=== PATIENT | female | born 1975 | race American Indian/Alaskan Native ===

== ENCOUNTER 2017-08-17 16:34 | Emergency (ER) | payer MEDICAID ==
[2017-08-17 17:26] VITALS: BP 124/64
--- NOTE | 2017-08-17 17:43 | EDM.PDOC ---
ED HPI GENERAL MEDICAL PROBLEM - General Source of Information: Reports: Patient History Limitations: Reports: No Limitations - History of Present Illness Onset: Other ( last 36 hours. ) Duration: Hour(s): Associated Symptoms: Reports: Nausea/Vomiting <Shilpi London - Last Filed: 08/17/17 17:59> <Timmy Page Veronica - Last Filed: 08/17/17 19:18> - General Stated Complaint: ABOUT 7 WEEKS WITH LOTS OF CRAMPING Time Seen by Provider: 08/17/17 17:25 - History of Present Illness INITIAL COMMENTS - FREE TEXT/NARRATIVE: Pt is a 42 year old 13 para 11. She thinks she may be about 7.5 weeks along but she is not sure. She belives she had her last period Jun 21. She has been doing some cramping in the last 36 hours. She has not had spotting at this point. She has had some subchorionic bleeds in the past. She has no symptoms of a UTI. She has been doing some vomiting. (Shilpi London) - Related Data Allergies Allergy/AdvReac Type Severity Reaction Status Date / Time bupropion HCl Allergy Hives Verified 08/17/17 17:14 [From Wellbutrin] Penicillins Allergy Cannot Verified 08/17/17 17:14 Remember Sulfa (Sulfonamide Allergy Hives Verified 08/17/17 17:14 Antibiotics) Home Meds: Home Meds Albuterol Sulfate [Albuterol Sulfate HFA] 8.5 gm IH Q4HR PRN 08/15/13 [History] Ibuprofen 400 mg PO ASDIRECTED 11/29/15 [History] Montelukast [Singulair] 10 mg PO BEDTIME 05/17/16 [History] Albuterol [Ventolin HFA] 1 dose INH Q4HR PRN 10/24/16 [History] Cetirizine HCl [Zyrtec] 10 mg PO DAILY 10/24/16 [History] Past Medical History HEENT History: Reports: Impaired Vision Respiratory History: Reports: Asthma 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: - Infectious Disease History Infectious Disease History: Reports: Chicken Pox - Past Surgical History HEENT Surgical History: Reports: Myringotomy w Tube(s) Female Surgical History: Reports: Section <Shilpi London - Last Filed: 08/17/17 17:59> Social & Family History - Tobacco Use Smoking Status *Q: Never Smoker Second Hand Smoke Exposure: No - Caffeine Use Caffeine Use: Reports: Coffee - Alcohol Use Days Per Week of Alcohol Use: 0 - Recreational Drug Use Recreational Drug Use: No - Living Situation & Occupation Living situation: Reports: <Shilpi London - Last Filed: 08/17/17 17:59> ED ROS GENERAL - Review of Systems Review Of Systems: See Below Constitutional: Reports: No Symptoms, Decreased Appetite HEENT: Reports: No Symptoms Respiratory: Reports: No Symptoms Cardiovascular: Reports: No Symptoms Endocrine: Reports: No Symptoms GI/Abdominal: Reports: Decreased Appetite, Nausea, Vomiting : Reports: No Symptoms Musculoskeletal: Reports: No Symptoms Skin: Reports: No Symptoms <SuryaShilpi - Last Filed: 08/17/17 17:59> ED EXAM - Physical Exam Exam: See Below Exam Limited By: No Limitations General Appearance: Alert, Anxious, Mild Distress Ears: Normal TMs Nose: Normal Inspection Throat/Mouth: Normal Inspection Head: Atraumatic Neck: Normal Inspection Respiratory/Chest: No Respiratory Distress Cardiovascular: Regular Rate, Rhythm GI/Abdominal Exam: Soft, Non-Tender Rectal Exam: Deferred Extremities: Normal Inspection Neurological: Alert, Oriented, Normal Cognition <SuryaShilpi - Last Filed: 08/17/17 17:59> <Timmy Page - Last Filed: 08/17/17 19:18> - Physical Exam Text/Narrative:: pt arrived having cramping in the lower abdoman. She has no spotting. She has no change in discharge. She had her last eriod the middle -Jun. This cramping started about 36 hours ago. She has been doing some vomiting. Her cramping has not been severe. (Shilpi London) Course <Shilpi London - Last Filed: 08/17/17 17:59> <Timmy Page - Last Filed: 08/17/17 19:18> - Vital Signs Last Recorded V/S: Last Vital Signs Temp 36.7 C 08/17/17 17:35 Pulse 62 08/17/17 17:35 Resp 16 08/17/17 17:35 BP 124/64 08/17/17 17:35 Pulse Ox 98 11/16/17 17:35 - Orders/Labs/Meds Orders: Active Orders 24 hr Category Date Time Status CULTURE URINE [RM] Stat Lab 08/17/17 18:08 Received Sodium Chloride 0.9% [Normal Saline] 1,000 ml Med 08/17/17 18:00 Active IV ASDIRECTED Medication Orders Sodium Chloride (Normal Saline) 1,000 mls @ 999 mls/hr IV ASDIRECTED JEFF Last Admin: 08/17/17 17:59 Dose: 999 mls/hr Labs: Laboratory Tests 08/17/17 08/17/17 08/17/17 Range/Units 17:31 17:34 17:35 WBC 7.9 (4.5-11.0) K/uL RBC 4.33 (3.30-5.50) M/uL Hgb 11.3 L D (12.0-15.0) g/dL Hct 36.5 (36.0-48.0) % MCV 84 (80-98) fL MCH 26 L (27-31) pg MCHC 31 L (32-36) % Plt Count 300 (150-400) K/uL Neut % (Auto) 62 (36-66) % Lymph % (Auto) 26 (24-44) % [place] % (Auto) 9 H (2-6) % Eos % (Auto) 3 (2-4) % Baso % (Auto) 0 (0-1) % Sodium (140-148) mmol/L Potassium (3.6-5.2) mmol/L Chloride (100-108) mmol/L Carbon Dioxide (21-32) mmol/L Anion Gap (5.0-14.0) mmol/L BUN (7-18) mg/dL Creatinine (0.6-1.0) mg/dL Est Cr Clr Drug Dosing mL/min Estimated GFR (MDRD) (>60) Glucose (74-106) mg/dL Calcium (8.5-10.1) mg/dL Total Bilirubin (0.2-1.0) mg/dL AST (15-37) U/L ALT (12-78) U/L Alkaline Phosphatase (46-116) U/L Total Protein (6.4-8.2) g/dL Albumin (3.4-5.0) g/dL Globulin (2.3-3.5) g/dL Albumin/Globulin Ratio (1.2-2.2) Urine Color Yellow Urine Appearance Slightly cloudy Urine pH 5.0 (4.5-8.0) Ur Specific [place] 1.020 (1.008-1.030) Urine Protein Negative (NEGATIVE) mg/dL Urine Glucose (UA) Normal (NEGATIVE) mg/dL Urine Ketones Negative (NEGATIVE) mg/dL Urine Occult Blood Negative (NEGATIVE) Urine Nitrite Negative (NEGATIVE) Urine Bilirubin Negative (NEGATIVE) Urine Urobilinogen Normal (NORMAL) mg/dL Ur Leukocyte Esterase Negative (NEGATIVE) Urine RBC 0-5 (0-5) Urine WBC 0-5 (0-5) Ur Epithelial Cells Few Amorphous Sediment Not seen Urine Bacteria Moderate Urine Mucus Few Urine HCG, Qual Positive H 08/17/17 Range/Units 17:35 WBC (4.5-11.0) K/uL RBC (3.30-5.50) M/uL Hgb (12.0-15.0) g/dL Hct (36.0-48.0) % MCV (80-98) fL MCH (27-31) pg MCHC (32-36) % Plt Count (150-400) K/uL Neut % (Auto) (36-66) % Lymph % (Auto) (24-44) % [place] % (Auto) (2-6) % Eos % (Auto) (2-4) % Baso % (Auto) (0-1) % Sodium 140 (140-148) mmol/L Potassium 3.4 L (3.6-5.2) mmol/L Chloride 105 (100-108) mmol/L Carbon Dioxide 26 (21-32) mmol/L Anion Gap 12.4 (5.0-14.0) mmol/L BUN 8 (7-18) mg/dL Creatinine 0.8 (0.6-1.0) mg/dL Est Cr Clr Drug Dosing 90.06 mL/min Estimated GFR (MDRD) > 60 (>60) Glucose 78 (74-106) mg/dL Calcium 8.7 (8.5-10.1) mg/dL Total Bilirubin 0.3 (0.2-1.0) mg/dL AST 17 (15-37) U/L ALT 23 (12-78) U/L Alkaline Phosphatase 92 (46-116) U/L Total Protein 7.4 (6.4-8.2) g/dL Albumin 3.6 (3.4-5.0) g/dL Globulin 3.8 H (2.3-3.5) g/dL Albumin/Globulin Ratio 1.0 L (1.2-2.2) Urine Color Urine Appearance Urine pH (4.5-8.0) Ur Specific [place] (1.008-1.030) Urine Protein (NEGATIVE) mg/dL Urine Glucose (UA) (NEGATIVE) mg/dL Urine Ketones (NEGATIVE) mg/dL Urine Occult Blood (NEGATIVE) Urine Nitrite (NEGATIVE) Urine Bilirubin (NEGATIVE) Urine Urobilinogen (NORMAL) mg/dL Ur Leukocyte Esterase (NEGATIVE) Urine RBC (0-5) Urine WBC (0-5) Ur Epithelial Cells Amorphous Sediment Urine Bacteria Urine Mucus Urine HCG, Qual Meds: Medications Generic Name Dose Route Start Last Admin Trade Name Freq PRN Reason Stop Dose Admin Sodium Chloride 1,000 mls @ 999 mls/hr 08/17/17 18:00 08/17/17 17:59 Normal Saline IV 999 mls/hr ASDIRECTED JEFF Administration - Re-Assessments/Exams Free Text/Narrative Re-Assessment/Exam: 08/17/17 18:02 urine had a specfic gravity is high. A liter of fluids will be given She has some bacteria in the urine but not alot of wbcs. A urine culture was set up. Her hg was 11. She has not been taking vits high in folic acid. ( Shilpi London) Free Text/Narrative Re-Assessment/Exam: 08/17/17 19:14 Assumed care at 1915. She is a grand multip at about 7.5 wk by dates with uterine cramping but no bleeding. Her lower abd and suprapubic area non- tender. Labs noted. No suspicion of ectopic. She received 1 liter iv ns. She feels well now and no more cramping (Timmy Page) Departure <Shilpi London - Last Filed: 08/17/17 17:59> - Departure Time of Disposition: 19:16 Condition: Fair <Timmy Page - Last Filed: 08/17/17 19:18> - Departure Disposition: Home, Self-Care 01 Clinical Impression: First trimester , Uterine cramping - Discharge Information Referrals: PCP,None [Primary Care Provider] - Additional Instructions: The cramping was probably due to some mild dehydration. If you feel you are getting worse then return to the ER right away of see your doctor. Be sure to drink plenty of liquids. Take vitamins.
[2017-08-17] MEDS ORDERED: Sodium Chloride 0.9% 1,000 ML IV SCH (18:00)
== END 2017-08-17 19:25 | disposition home or self-care (01) ==
LOC: JP.ED 16:34
DX: O99.89 Other specified diseases and conditions complicating pregnancy, childbirth and the puerperium (principal); N94.89 Other specified conditions associated with female genital organs and menstrual cycle; O99.52 Diseases of the respiratory system complicating childbirth; J45.909 Unspecified asthma, uncomplicated; Z3A.08 8 weeks gestation of pregnancy; Z88.0 Allergy status to penicillin; Z88.8 Allergy status to other drugs, medicaments and biological substances; Z88.2 Allergy status to sulfonamides; Z79.899 Other long term (current) drug therapy
CPT/HCPCS: 36415; 80053; 81001; 81025; 85025; 87086; 96360; 99284; J7040

== ENCOUNTER 2017-09-02 13:50 | Emergency (ER) | payer MEDICAID ==
[2017-09-02 14:03] VITALS: BP 116/73
--- NOTE | 2017-09-02 14:54 | EDM.PDOC ---
ED HPI GENERAL MEDICAL PROBLEM - General Chief Complaint: Respiratory Problem Stated Complaint: DIFFICULTY BREATHING Time Seen by Provider: 09/02/17 14:42 Source of Information: Reports: Patient, RN Notes Reviewed History Limitations: Reports: No Limitations - History of Present Illness INITIAL COMMENTS - FREE TEXT/NARRATIVE: 42-year-old female presents emergency department day complaint of feeling short of breath she was recently diagnosed with influenza A has started on Tamiflu has received 2 doses she states she gets so short of breath she cannot walk more than 10 feet without having to stop and rest Headache Pain Score (Numeric/FACES): 3 - Related Data Allergies Allergy/AdvReac Type Severity Reaction Status Date / Time bupropion HCl Allergy Hives Verified 09/02/17 14:24 [From Wellbutrin] Penicillins Allergy Cannot Verified 09/02/17 14:24 Remember Sulfa (Sulfonamide Allergy Hives Verified 09/02/17 14:24 Antibiotics) Home Meds: Home Meds Albuterol Sulfate [Albuterol Sulfate HFA] 8.5 gm IH Q4HR PRN 08/15/13 [History] Montelukast [Singulair] 10 mg PO BEDTIME 05/17/16 [History] Albuterol [Ventolin HFA] 1 dose INH Q4HR PRN 10/24/16 [History] Acetaminophen [Tylenol] 650 mg PO Q4H PRN 09/02/17 [History] Loratadine [Claritin] 10 mg PO BEDTIME 09/02/17 [History] Oseltamivir Phosphate 75 mg PO BID 09/02/17 [History] Past Medical History HEENT History: Reports: Impaired Vision Respiratory History: Reports: Asthma 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 for 1 month as a teenager for depression Endocrine/Metabolic History: Reports: Obesity/BMI 30+ - Infectious Disease History Infectious Disease History: Reports: Chicken Pox, Influenza - Past Surgical History Head Surgeries/Procedures: Reports: None HEENT Surgical History: Reports: Myringotomy w Tube(s) Respiratory Surgical History: Reports: None Female Surgical History: Reports: Section Endocrine Surgical History: Reports: None Dermatological Surgical History: Reports: None Social & Family History - Family History Family Medical History: Noncontributory - Tobacco Use Smoking Status *Q: Never Smoker Second Hand Smoke Exposure: No - Caffeine Use Caffeine Use: Reports: Coffee, Soda, Tea - Alcohol Use Days Per Week of Alcohol Use: 0 - Recreational Drug Use Recreational Drug Use: No - Living Situation & Occupation Living situation: Reports: ED ROS GENERAL - Review of Systems Review Of Systems: See Below Constitutional: Reports: Fever, Chills HEENT: Reports: Sinus Problem Respiratory: Reports: Shortness of Breath, Cough Cardiovascular: Reports: No Symptoms GI/Abdominal: Reports: No Symptoms : Reports: No Symptoms Musculoskeletal: Reports: Other (Body aches) Skin: Reports: No Symptoms ED EXAM, GENERAL - Physical Exam Exam: See Below Free Text/Narrative:: I did ambulate her around the emergency department she had no difficulty oxygen saturation started at 98% did dip to 96% however recovered to 99% upon rest Exam Limited By: No Limitations General Appearance: Alert, WD/WN, No Apparent Distress Ears: Normal External Exam, Normal Canal, Hearing Grossly Normal, Normal TMs Nose: Normal Inspection, Normal Mucosa, No Blood Throat/Mouth: Normal Inspection, Normal Lips, Normal Teeth, Normal Gums, Normal Oropharynx, Normal Voice, No Airway Compromise Head: Atraumatic, Normocephalic Neck: Normal Inspection, Supple, Non-Tender, Full Range of Motion Respiratory/Chest: No Respiratory Distress, Lungs Clear, Normal Breath Sounds, No Accessory Muscle Use, Chest Non-Tender Cardiovascular: Regular Rate, Rhythm, No Murmur Course - Vital Signs Last Recorded V/S: Last Vital Signs Temp 98.8 F 09/02/17 14:23 Pulse 93 09/02/17 14:23 Resp 11 L 09/02/17 14:23 BP 116/73 09/02/17 14:23 Pulse Ox 97 09/02/17 14:23 Departure - Departure Time of Disposition: 14:55 Disposition: Home, Self-Care 01 Condition: Good Clinical Impression: Influenza A - Discharge Information Referrals: PCP,None [Primary Care Provider] - Forms: ED Department Discharge Additional Instructions: continue to use Tylenol as needed for symptomatic care recommended over-the- counter treatments for sinus congestion, try the [place] for relief keep your follow-up appointment with obstetrics, call return to the emergency department worsening of symptoms - Assessment/Plan Plan: Assessment Acuity = acute Site and laterality = flu syndrome Etiology = influenza A Manifestations = dyspnea Location of injury = Home Lab values = none Plan Symptomatic care continued using Tylenol as needed, recommend [id number] antihistamines and that he pot for sinus congestion keep follow-up appointment with primary care Patient was in agreement with the plan all questions were answered, they were instructed to return to the emergency department or call for worsening symptoms. This note was dictated using [facility] voice recognition software please call with any questions.
== END 2017-09-02 15:04 | disposition home or self-care (01) ==
LOC: JP.ED 13:50
DX: J10.1 Influenza due to other identified influenza virus with other respiratory manifestations (principal); J45.909 Unspecified asthma, uncomplicated; Z88.2 Allergy status to sulfonamides; Z88.0 Allergy status to penicillin; Z88.8 Allergy status to other drugs, medicaments and biological substances
CPT/HCPCS: 99285

== ENCOUNTER 2018-10-06 13:12 | Emergency (ER) | payer MEDICAID ==
[2018-10-06 14:20] VITALS: BP 145/68
--- NOTE | 2018-10-06 16:33 | EDM.PDOC ---
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 She had a quant in the 5000 rage a week ago. She is about 7 weeks along. Onset: Gradual Duration: Day(s): Location: Reports: Other (pt is having dark spotting but no cramping. ) Associated Symptoms: Reports: No Other Symptoms - Related Data Allergies Allergy/AdvReac Type Severity Reaction Status Date / Time bupropion HCl Allergy Hives Verified 10/06/18 14:36 [From Wellbutrin] Penicillins Allergy Cannot Verified 10/06/18 14:36 Remember Sulfa (Sulfonamide Allergy Hives Verified 10/06/18 14:36 Antibiotics) Home Meds: Home Meds Albuterol Sulfate [Albuterol Sulfate HFA] 8.5 gm IH Q4HR PRN 08/15/13 [History] Montelukast [Singulair] 10 mg PO BEDTIME 05/17/16 [History] Albuterol [Ventolin HFA] 1 dose INH Q4HR PRN 10/24/16 [History] Acetaminophen [Tylenol] 650 mg PO Q4H PRN 09/02/17 [History] Pnv No.95/Ferrous Fum/Folic AC [ Caplet] 10/02/18 [History] Iron,Carbonyl/Vit C/Vit B12/Fa [Fe C Plus] 10/06/18 [History] Past Medical History HEENT History: Reports: Impaired Vision 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 History: Reports: Asthma 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: Psychiatric History: Reports: Other (See Below) Other Psychiatric History: [facility] 1 month as a teenager for depression Endocrine/Metabolic History: Reports: Obesity/BMI 30+ - Infectious Disease History Infectious Disease History: Reports: Chicken Pox, Influenza - Past Surgical History Head Surgeries/Procedures: Reports: None HEENT Surgical History: Reports: Myringotomy w Tube(s) Respiratory Surgical History: Reports: None Endocrine Surgical History: Reports: None Dermatological Surgical History: Reports: None Social & Family History - Family History Family Medical History: Noncontributory - Tobacco Use Smoking Status *Q: Never Smoker - Caffeine Use Caffeine Use: Reports: Coffee - Living Situation & Occupation Living situation: Reports: ED ROS GENERAL - Review of Systems Review Of Systems: See Below Constitutional: Reports: No Symptoms HEENT: Reports: No Symptoms Respiratory: Reports: No Symptoms Cardiovascular: Reports: No Symptoms Endocrine: Reports: No Symptoms GI/Abdominal: Reports: No Symptoms : Reports: No Symptoms, Other (pt is 7 weeks and is having some dark vag spotting. ) Musculoskeletal: Reports: No Symptoms Skin: Reports: No Symptoms Neurological: Reports: No Symptoms ED EXAM - Physical Exam Exam: See Below Text/Narrative:: pt arrived concerned about the dark vag spotting. She had brighter bleeding about 1 week ago. Exam Limited By: No Limitations General Appearance: Alert, No Apparent Distress Ears: Normal External Exam Nose: Normal Inspection Throat/Mouth: Normal Inspection Head: Atraumatic GI/Abdominal Exam: Other ( pt is not having cramping or any vag discomfort. ) Rectal Exam: Deferred Neurological: Alert, Oriented, Normal Cognition Course - Vital Signs Last Recorded V/S: Last Vital Signs Temp 35.9 C 10/06/18 14:42 Pulse 71 10/06/18 14:42 Resp 16 10/06/18 14:42 BP 145/68 H 10/06/18 14:42 Pulse Ox 97 10/06/18 14:42 - Orders/Labs/Meds Labs: Laboratory Tests 10/06/18 10/06/18 Range/Units 15:14 15:14 WBC 5.9 (4.5-11.0) K/uL RBC 4.49 (3.30-5.50) M/uL Hgb 12.9 (12.0-15.0) g/dL Hct 40.7 (36.0-48.0) % MCV 91 (80-98) fL MCH 29 (27-31) pg MCHC 32 (32-36) % Plt Count 251 (150-400) K/uL Neut % (Auto) 66 (36-66) % Lymph % (Auto) 25 (24-44) % [place] % (Auto) 6 (2-6) % Eos % (Auto) 3 (2-4) % Baso % (Auto) 0 (0-1) % HCG, Quant 7059 H (0-6) mIU/mL - Re-Assessments/Exams Free Text/Narrative Re-Assessment/Exam: 10/06/18 16:36 Pt has a quantative HCG which has risen to grweater then 7000. Her hg is good Departure - Departure Time of Disposition: 16:31 Disposition: Home, Self-Care 01 Condition: Fair Clinical Impression: 7 weeks gestation of , Vaginal spotting - Discharge Information Referrals: Emmanuelle Leong MD [Primary Care Provider] - Forms: ED Department Discharge Care Plan Goals: keep ob appt next week, make a copy of the labs from 1 week ago and today. and send with the pt for her appt, rtc if pt should have any heavy bleeding.
== END 2018-10-06 16:39 | disposition home or self-care (01) ==
LOC: JP.ED 13:12
DX: O26.851 Spotting complicating pregnancy, first trimester (principal); O99.511 Diseases of the respiratory system complicating pregnancy, first trimester; J45.909 Unspecified asthma, uncomplicated; Z88.0 Allergy status to penicillin; Z88.2 Allergy status to sulfonamides; Z79.899 Other long term (current) drug therapy; Z3A.01 Less than 8 weeks gestation of pregnancy
CPT/HCPCS: 36415; 84702; 85025; 99284

== ENCOUNTER 2019-03-16 02:14 | Emergency (ER) | payer MEDICAID ==
[2019-03-16 02:51] VITALS: BP 160/69
--- NOTE | 2019-03-16 03:33 | EDM.PDOC ---
ED HPI GENERAL MEDICAL PROBLEM - General Chief Complaint: General Stated Complaint: PALPITATIONS, SHORTNESS OF BREATH Time Seen by Provider: 03/16/19 03:23 Source of Information: Reports: Patient History Limitations: Reports: No Limitations - History of Present Illness INITIAL COMMENTS - FREE TEXT/NARRATIVE: This lady said she was at home and sitting on the couch watching TV and so forth when suddenly she felt anxious and took her pulse I believe it was with her blood pressure cuff and it was 107 and she got really upset by this because it was so high. Normally her heart rate runs in the 60s. She denied feeling short of breath however. She never had any chest pain. The only problem was her heart rate was elevated denies pain Pain Score (Numeric/FACES): 0 - Related Data Allergies Allergy/AdvReac Type Severity Reaction Status Date / Time bupropion HCl Allergy Hives Verified 03/16/19 03:13 [From Wellbutrin] Penicillins Allergy Cannot Verified 03/16/19 03:13 Remember Sulfa (Sulfonamide Allergy Hives Verified 03/16/19 03:13 Antibiotics) Home Meds: Home Meds Albuterol Sulfate [Albuterol Sulfate HFA] 8.5 gm IH Q4HR PRN 08/15/13 [History] Montelukast [Singulair] 10 mg PO BEDTIME 05/17/16 [History] Albuterol [Ventolin HFA] 1 dose INH Q4HR PRN 10/24/16 [History] Acetaminophen [Tylenol] 650 mg PO Q4H PRN 09/02/17 [History] Pnv No.95/Ferrous Fum/Folic AC [ Caplet] 10/02/18 [History] Iron,Carbonyl/Vit C/Vit B12/Fa [Fe C Plus] 10/06/18 [History] Past Medical History HEENT History: Reports: Impaired Vision 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 History: Reports: Asthma 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: Musculoskeletal History: Reports: Fracture Psychiatric History: Reports: Other (See Below) Other Psychiatric History: [facility] for 1 month as a teenager for depression Endocrine/Metabolic History: Reports: Obesity/BMI 30+ - Infectious Disease History Infectious Disease History: Reports: Chicken Pox, Influenza - Past Surgical History Head Surgeries/Procedures: Reports: None HEENT Surgical History: Reports: Myringotomy w Tube(s) Female Surgical History: Reports: Section Musculoskeletal Surgical History: Reports: Other (See Below) Other Musculoskeletal Surgeries/Procedures:: right radius and ulna surgical repair due to fracture Dermatological Surgical History: Reports: None Social & Family History - Family History Family Medical History: Noncontributory - Tobacco Use Smoking Status *Q: Never Smoker - Caffeine Use Caffeine Use: Reports: Coffee - Recreational Drug Use Recreational Drug Use: No - Living Situation & Occupation Living situation: Reports: ED ROS GENERAL - Review of Systems Review Of Systems: ROS reveals no pertinent complaints other than HPI. ED EXAM, GENERAL - Physical Exam Exam: See Below Exam Limited By: No Limitations General Appearance: Alert, WD/WN, Anxious Eye Exam: Bilateral Eye: Normal Inspection Throat/Mouth: Normal Oropharynx Neck: Normal Inspection Respiratory/Chest: Lungs Clear Cardiovascular: Regular Rate, Rhythm, No Murmur GI/Abdominal: Non-Tender Extremities: No Pedal Edema Course - Vital Signs Last Recorded V/S: Last Vital Signs Temp 36.2 C 03/16/19 03:15 Pulse 63 03/16/19 03:15 Resp 15 03/16/19 03:15 BP 160/69 H 03/16/19 03:15 Pulse Ox 100 03/16/19 03:15 Departure - Departure Time of Disposition: 03:30 Disposition: Home, Self-Care 01 Condition: Fair Clinical Impression: Palpitations - Discharge Information Instructions: Palpitations, [id number] Referrals: PCP,None [Primary Care Provider] - Forms: ED Department Discharge Additional Instructions: A heart rate of 107 is just barely above normal and is nothing for you to worry about. Even just very minor anxiety can cause that. This is nothing for you to worry about. You don't need to worry about electrolyte imbalances unless you've been having problems with vomiting and diarrhea and so forth. If you're having some leg cramps you could try taking about a half a teaspoon of salt in a glass of water and see if that helps or a lot of times taking about 3 or 4 Tums tablets will help. If you continue to have problems then follow-up with your early next week.
== END 2019-03-16 03:45 | disposition home or self-care (01) ==
LOC: JP.ED 02:14
DX: R00.2 Palpitations (principal); J45.909 Unspecified asthma, uncomplicated; E66.9 Obesity, unspecified; Z79.899 Other long term (current) drug therapy; Z88.8 Allergy status to other drugs, medicaments and biological substances; Z88.0 Allergy status to penicillin; Z88.2 Allergy status to sulfonamides; Z68.38 Body mass index [BMI] 38.0-38.9, adult
CPT/HCPCS: 99284

== ENCOUNTER 2019-07-29 15:57 | Emergency (ER) | payer MEDICAID ==
[2019-07-29 16:09] VITALS: BP 151/70; PULSE 71
--- NOTE | 2019-07-29 16:44 | EDM.PDOC ---
ED HPI GENERAL MEDICAL PROBLEM - General Chief Complaint: Back Pain or Injury Stated Complaint: 10 WKS PREG LOW BACK PAIN Time Seen by Provider: 07/29/19 16:10 Source of Information: Reports: Patient History Limitations: Reports: No Limitations - History of Present Illness INITIAL COMMENTS - FREE TEXT/NARRATIVE: 43-year-old female who is 10 weeks' gestation , confirmed with a 6 week ultrasound presents with low back discomfort for the past 6 hours. It hurts to bend forward, hurts to move her lean sideways. She is been chasing her son around and thinks she may have strained her back, she has no dysuria, urinary symptoms, fever or chills, vaginal spotting or cramping. No abdominal pain. Onset: Sudden (Started fairly suddenly at 10 AM, 6 hours ago) Associated Symptoms: Reports: No Other Symptoms Lower Back Pain Score (Numeric/FACES): 4 - Related Data Allergies Allergy/AdvReac Type Severity Reaction Status Date / Time bupropion HCl Allergy Hives Verified 07/29/19 16:08 [From Wellbutrin] Penicillins Allergy Cannot Verified 07/29/19 16:08 Remember Sulfa (Sulfonamide Allergy Hives Verified 07/29/19 16:08 Antibiotics) Home Meds: Home Meds Albuterol Sulfate [Albuterol Sulfate HFA] 8.5 gm IH Q4HR PRN 08/15/13 [History] Montelukast [Singulair] 10 mg PO BEDTIME 05/17/16 [History] Albuterol [Ventolin HFA] 1 dose INH Q4HR PRN 10/24/16 [History] Acetaminophen [Tylenol] 650 mg PO Q4H PRN 09/02/17 [History] Pnv No.95/Ferrous Fum/Folic AC [ Caplet] 1 tab PO DAILY 10/02/18 [ History] Past Medical History HEENT History: Reports: Impaired Vision Respiratory History: Reports: Asthma 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 SPECIALIST History: Reports: , 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 Musculoskeletal History: Reports: Fracture Psychiatric History: Reports: Other (See Below) Other Psychiatric History: [facility] for 1 month as a teenager for depression Endocrine/Metabolic History: Reports: Obesity/BMI 30+ - Infectious Disease History Infectious Disease History: Reports: Chicken Pox, Influenza - Past Surgical History Head Surgeries/Procedures: Reports: None HEENT Surgical History: Reports: Myringotomy w Tube(s) Respiratory Surgical History: Reports: None Female Surgical History: Reports: Section Endocrine Surgical History: Reports: None Musculoskeletal Surgical History: Reports: Other (See Below) Other Musculoskeletal Surgeries/Procedures:: right radius and ulna surgical repair due to fracture Dermatological Surgical History: Reports: None Social & Family History - Family History Family Medical History: Noncontributory - Tobacco Use Smoking Status *Q: Never Smoker Second Hand Smoke Exposure: No - Caffeine Use Caffeine Use: Reports: Coffee - Recreational Drug Use Recreational Drug Use: No - Living Situation & Occupation Living situation: Reports: ED ROS GENERAL - Review of Systems Review Of Systems: See Below Constitutional: Denies: Fever, Chills Respiratory: Denies: Shortness of Breath Cardiovascular: Denies: Chest Pain GI/Abdominal: Denies: Abdominal Pain Neurological: Reports: Paresthesia (Some slight numbness radiating to the anterior left thigh) ED EXAM,LOWER BACK PAIN/INJURY - Physical Exam Exam: See Below Exam Limited By: No Limitations General Appearance: Alert, No Apparent Distress Head: Atraumatic Respiratory/Chest: No Respiratory Distress GI/Abdominal: Normal Bowel Sounds, Soft, Other (Using a Doppler ultrasound heart tones are 168 were heard just above the suprapubic area) Back Exam: Other (Tender to palpation over the lower lumbar spine especially the left paralumbar muscles. Worse with rotating to the left against resistance and lifting the left leg. No true radiculopathy or extremity weakness.) Course - Vital Signs Last Recorded V/S: Last Vital Signs Temp 97.8 F 07/29/19 16:11 Pulse 71 07/29/19 16:11 Resp 18 07/29/19 16:11 BP 151/70 H 07/29/19 16:11 Pulse Ox 98 07/29/19 16:11 - Re-Assessments/Exams Free Text/Narrative Re-Assessment/Exam: 07/29/19 16:42 Patient was reassured that this does not appear to be related to her but is more musculoskeletal. Continue activity as tolerated, Tylenol or naproxen for pain if okay with her ORIGINATION SPECIALIST. Recheck later this week if not improving satisfactorily. Departure - Departure Time of Disposition: 16:49 Disposition: Home, Self-Care 01 Clinical Impression: 10 weeks gestation of Low back strain Qualifiers: Encounter type: initial encounter Qualified Code(s): S39.012A - Strain of muscle, fascia and tendon of lower back, initial encounter - Discharge Information Instructions: Low Back Sprain Referrals: Kayla Merino PA-C [Primary Care Provider] - Forms: ED Department Discharge Care Plan Goals: Tylenol and Aleve or ibuprofen is appropriate for the next several days. Heat or ice if it helps, and increase activity as tolerated. Consider rechecking in 3 -4 days if not improving satisfactorily.
== END 2019-07-29 16:49 | disposition home or self-care (01) ==
LOC: JP.ED 15:57
DX: O9A.211 Injury, poisoning and certain other consequences of external causes complicating pregnancy, first trimester (principal); S39.012A Strain of muscle, fascia and tendon of lower back, initial encounter; O99.211 Obesity complicating pregnancy, first trimester; E66.9 Obesity, unspecified; O99.511 Diseases of the respiratory system complicating pregnancy, first trimester; J45.909 Unspecified asthma, uncomplicated; Z3A.10 10 weeks gestation of pregnancy; Z88.2 Allergy status to sulfonamides; Z88.0 Allergy status to penicillin; Z88.8 Allergy status to other drugs, medicaments and biological substances; X58.XXXA Exposure to other specified factors, initial encounter; Y93.89 Activity, other specified
CPT/HCPCS: 99283-25

== ENCOUNTER 2020-01-04 18:29 | Emergency (ER) | payer MEDICAID ==
[2020-01-04 18:40] VITALS: BP 145/74; PULSE 104
--- NOTE | 2020-01-04 18:59 | EDM.PDOC ---
ED HPI GENERAL MEDICAL PROBLEM - General Chief Complaint: Upper Extremity Injury/Pain Stated Complaint: HURT LEFT WRIST Time Seen by Provider: 01/04/20 18:45 Source of Information: Reports: Patient History Limitations: Reports: No Limitations - History of Present Illness INITIAL COMMENTS - FREE TEXT/NARRATIVE: 44-year-old female with left wrist pain for the past week. She was getting up out of a chair when her wrist slipped off of the plastic cover of the arm of the chair and bent into a funny position causing pain. Since that time she has had some swelling and persistent discomfort over the radial aspect of the wrist , with pain especially with extension and ulnar deviation of the wrist. She is tried ice and wrapping but it is consistently bothering her so she wanted it checked. It is been 8 days. She did not actually strike it against anything. It never did bruise. Onset: Sudden Duration: Day(s): (8 days ago) Location: Reports: Upper Extremity, Left Associated Symptoms: Reports: No Other Symptoms (She is 33 weeks ) - Related Data Allergies Allergy/AdvReac Type Severity Reaction Status Date / Time bupropion HCl Allergy Hives Verified 01/04/20 18:41 [From Wellbutrin] Penicillins Allergy Cannot Verified 01/04/20 18:41 Remember Sulfa (Sulfonamide Allergy Hives Verified 01/04/20 18:41 Antibiotics) Home Meds: Home Meds Montelukast [Singulair] 10 mg PO BEDTIME 05/17/16 [History] Albuterol [Ventolin HFA] 1 dose INH Q4HR PRN 10/24/16 [History] Pnv No.95/Ferrous Fum/Folic AC [ Caplet] 1 tab PO DAILY 10/02/18 [ History] Beclomethasone Dipropionate [Qvar 80 Mcg] 1 puff INH DAILY 12/09/19 [History] Past Medical History HEENT History: Reports: Impaired Vision Respiratory History: Reports: Asthma 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: , 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 Musculoskeletal History: Reports: Fracture Psychiatric History: Reports: Other (See Below) Other Psychiatric History: [facility] for 1 month as a teenager for depression Endocrine/Metabolic History: Reports: Obesity/BMI 30+ - Infectious Disease History Infectious Disease History: Reports: Chicken Pox, Influenza - Past Surgical History Head Surgeries/Procedures: Reports: None HEENT Surgical History: Reports: Myringotomy w Tube(s) Respiratory Surgical History: Reports: None Female Surgical History: Reports: Section Endocrine Surgical History: Reports: None Musculoskeletal Surgical History: Reports: Other (See Below) Other Musculoskeletal Surgeries/Procedures:: right radius and ulna surgical repair due to fracture Dermatological Surgical History: Reports: None Social & Family History - Family History Family Medical History: Noncontributory - Tobacco Use Smoking Status *Q: Never Smoker - Caffeine Use Caffeine Use: Reports: Coffee - Living Situation & Occupation Living situation: Reports: Review of Systems - Review of Systems Review Of Systems: See Below Constitutional: Denies: Fever Respiratory: Reports: No Symptoms Cardiovascular: Reports: No Symptoms Skin: Reports: No Symptoms Neurological: Reports: No Symptoms ED EXAM, GENERAL - Physical Exam Exam: See Below Exam Limited By: No Limitations General Appearance: Alert, No Apparent Distress Respiratory/Chest: No Respiratory Distress Extremities: Other (Exam is otherwise limited to the upper extremities. She does have some slight swelling over the distal radius on the left wrist especially laterally compared to the right hand. It is also very tender to palpation but there is no significant deformity or crepitus or bruising. Snuffbox is nontender. She has increased pain with extension of the wrist or radial deviation) Course - Vital Signs Last Recorded V/S: Last Vital Signs Temp 96.0 F L 01/04/20 18:46 Pulse 104 H 01/04/20 18:46 Resp 16 01/04/20 18:46 BP 145/74 H 01/04/20 18:46 Pulse Ox 98 01/04/20 18:46 - Orders/Labs/Meds Orders: Active Orders 24 hr Category Date Time Status DME for Discharge [COMM] Stat Oth 01/04/20 18:59 Ordered - Re-Assessments/Exams Free Text/Narrative Re-Assessment/Exam: 01/04/20 18:57 She likely has a sprain of the metacarpal radial ligament, possibly the radial collateral ligament and I recommended rest with a wrist splint for 1 to 2 weeks. This was placed, she can recheck in 1 to 2 weeks if not improving satisfactorily. She can also Caleb wrap around the splint for extra support. Departure - Departure Time of Disposition: 19:05 Disposition: Home, Self-Care 01 Clinical Impression: Sprain of left wrist Qualifiers: Encounter type: initial encounter Qualified Code(s): S63.502A - Unspecified sprain of left wrist, initial encounter - Discharge Information Instructions: Wrist Sprain, Adult Referrals: PCP,None [Primary Care Provider] - Forms: ED Department Discharge Care Plan Goals: Immobilize your wrist with the splint for the next 7 to 14 days. Consider rechecking in 10 to 14 days if not improving satisfactorily, or return sooner if worsening despite splinting. Sepsis Event Note - Evaluation Sepsis Screening Result: No Definite Risk - Focused Exam Vital Signs: Vital Signs Temp Pulse Resp BP Pulse Ox 01/04/20 18:46 96.0 F L 104 H 16 145/74 H 98 01/04/20 18:39 96.0 F L 104 H 16 145/74 H 98 Date Exam was Performed: 01/04/20 Time Exam was Performed: 19:03 - My Orders Last 24 Hours: My Active Orders 01/04/20 18:59 DME for Discharge [COMM] Stat - Assessment/Plan Last 24 Hours: My Active Orders 01/04/20 18:59 DME for Discharge [COMM] Stat
== END 2020-01-04 19:06 | disposition home or self-care (01) ==
LOC: JP.ED 18:29
DX: S63.502A Unspecified sprain of left wrist, initial encounter (principal); O9A.213 Injury, poisoning and certain other consequences of external causes complicating pregnancy, third trimester; J45.909 Unspecified asthma, uncomplicated; E66.9 Obesity, unspecified; Z68.41 Body mass index [BMI] 40.0-44.9, adult; Z88.8 Allergy status to other drugs, medicaments and biological substances; Z88.0 Allergy status to penicillin; Z88.2 Allergy status to sulfonamides; Z3A.33 33 weeks gestation of pregnancy; W01.0XXA Fall on same level from slipping, tripping and stumbling without subsequent striking against object, initial encounter
CPT/HCPCS: 29125; 99283

== ENCOUNTER 2020-03-24 17:05 | Emergency (ER) | payer MEDICAID ==
[2020-03-24 17:52] VITALS: BP 148/66; PULSE 78
--- NOTE | 2020-03-24 18:24 | EDM.PDOC ---
ED HPI GENERAL MEDICAL PROBLEM - General Chief Complaint: Asthma Stated Complaint: SOB Time Seen by Provider: 03/24/20 18:10 Source of Information: Reports: Patient History Limitations: Reports: No Limitations - History of Present Illness Onset: Today Location: Reports: Chest Quality: Reports: Other (SOB from neighbor cutting grass) Improves with: Reports: None, Other (Has given self nebs x4 and used puffer through out day. Still ) Worsens with: Reports: Other (Allergies ) Associated Symptoms: Reports: Cough denies Pain Score (Numeric/FACES): 0 - Related Data Allergies Allergy/AdvReac Type Severity Reaction Status Date / Time bupropion HCl Allergy Hives Verified 03/24/20 17:53 [From Wellbutrin] Penicillins Allergy Cannot Verified 03/24/20 17:53 Remember Sulfa (Sulfonamide Allergy Hives Verified 03/24/20 17:53 Antibiotics) Home Meds: Home Meds Montelukast [Singulair] 10 mg PO BEDTIME 05/17/16 [History] Albuterol [Ventolin HFA] 1 dose INH Q4HR PRN 10/24/16 [History] Pnv No.95/Ferrous Fum/Folic AC [ Caplet] 1 tab PO DAILY 10/02/18 [History] Albuterol Sulfate 1 dose INH Q4H PRN 03/24/20 [History] Past Medical History HEENT History: Reports: Impaired Vision Respiratory History: Reports: Asthma 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: , 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 Musculoskeletal History: Reports: Fracture Psychiatric History: Reports: Other (See Below) Other Psychiatric History: [facility] for 1 month as a teenager for depression Endocrine/Metabolic History: Reports: Obesity/BMI 30+ - Infectious Disease History Infectious Disease History: Reports: Chicken Pox - Past Surgical History Head Surgeries/Procedures: Reports: None HEENT Surgical History: Reports: Myringotomy w Tube(s) Respiratory Surgical History: Reports: None Female Surgical History: Reports: Section Endocrine Surgical History: Reports: None Musculoskeletal Surgical History: Reports: Other (See Below) Other Musculoskeletal Surgeries/Procedures:: right radius and ulna surgical repair due to fracture Dermatological Surgical History: Reports: None Social & Family History - Family History Family Medical History: Noncontributory - Tobacco Use Smoking Status *Q: Never Smoker Second Hand Smoke Exposure: No - Caffeine Use Caffeine Use: Reports: Coffee, Soda - Recreational Drug Use Recreational Drug Use: No - Living Situation & Occupation Living situation: Reports: ED ROS GENERAL - Review of Systems Review Of Systems: See Below Constitutional: Reports: No Symptoms HEENT: Reports: No Symptoms Respiratory: Reports: Shortness of Breath Cardiovascular: Reports: No Symptoms Musculoskeletal: Reports: No Symptoms Skin: Reports: No Symptoms, Urticaria (From allergies ) Neurological: Reports: No Symptoms Psychiatric: Reports: No Symptoms Immunologic: Reports: Environmental Allergy, Seasonal Allergy, Grass Allergy, Pollen Allergy ED EXAM, GENERAL - Physical Exam Exam: See Below Exam Limited By: No Limitations General Appearance: Alert, WD/WN, No Apparent Distress Throat/Mouth: Normal Inspection, Normal Lips, Normal Teeth, Normal Gums, Normal Oropharynx, Normal Voice, No Airway Compromise Head: Normocephalic Neck: Normal Inspection Respiratory/Chest: Lungs Clear Cardiovascular: Regular Rate, Rhythm GI/Abdominal: Normal Bowel Sounds Extremities: Normal Inspection, Normal Range of Motion Neurological: Alert, Oriented, CN II-XII Intact, Normal Cognition, Normal Reflexes, No Motor/Sensory Deficits Psychiatric: Normal Affect Skin Exam: Warm, Dry, Intact, Normal Color, No Rash Course - Vital Signs Text/Narrative:: Pt here with asthma flkare form "neighbors cutting grass". LS clear BL. No wheezing. No SOB.Nursing baby. Will give 60 mg PO now and RX 20 mg PO BID x 4 more days. Pt will be released to home. Verbalized understanding of medication directions. Last Recorded V/S: Last Vital Signs Temp 36.2 C 03/24/20 17:51 Pulse 78 03/24/20 17:51 Resp 20 03/24/20 17:51 BP 148/66 H 03/24/20 17:51 Pulse Ox 94 L 03/24/20 17:51 - Orders/Labs/Meds Meds: Medications Discontinued Medications Generic Name Dose Route Start Last Admin Trade Name Freq PRN Reason Stop Dose Admin Prednisone 60 mg 03/24/20 18:26 03/24/20 18:37 Prednisone PO 03/24/20 18:27 60 mg ONETIME ONE Administration Departure - Departure Time of Disposition: 18:40 Disposition: Home, Self-Care 01 Condition: Good Clinical Impression: Asthma with status asthmaticus Qualifiers: Asthma severity: mild Asthma persistence: intermittent Qualified Code(s): J45.22 - Mild intermittent asthma with status asthmaticus - Discharge Information *PRESCRIPTION DRUG MONITORING PROGRAM REVIEWED*: Not Applicable *COPY OF PRESCRIPTION DRUG MONITORING REPORT IN PATIENT JAMISON: Not Applicable Instructions: Asthma, Adult, [id number] Referrals: PCP,None [Primary Care Provider] - Forms: ED Department Discharge Additional Instructions: Please take Prednisone as directed. Seek medical attention if your condition worsens or does not improve. Sepsis Event Note (ED) - Evaluation Sepsis Screening Result: No Definite Risk - Focused Exam Vital Signs: Vital Signs Temp Pulse Resp BP Pulse Ox 03/24/20 17:51 36.2 C 78 20 148/66 H 94 L
[2020-03-24] MEDS ORDERED: predniSONE 20 MG Tab PO ONE (18:26)
[2020-03-24] MEDS ORDERED: Albuterol/Ipratropium 3.0-0.5 MG/3 ML Neb Soln NEB ONE (18:45)
== END 2020-03-24 19:03 | disposition home or self-care (01) ==
LOC: JP.ED 17:05
DX: J45.22 Mild intermittent asthma with status asthmaticus (principal); J45.909 Unspecified asthma, uncomplicated; E66.9 Obesity, unspecified; Z88.8 Allergy status to other drugs, medicaments and biological substances; Z88.0 Allergy status to penicillin; Z88.2 Allergy status to sulfonamides; Z68.41 Body mass index [BMI] 40.0-44.9, adult
CPT/HCPCS: 94640; 99284; J7512; J7620-GY

== ENCOUNTER 2020-11-28 19:27 | Emergency (ER) | payer MEDICAID ==
[2020-11-28 19:47] VITALS: BP 129/50; PULSE 55
--- NOTE | 2020-11-28 19:59 | EDM.PDOC ---
ED HPI GENERAL MEDICAL PROBLEM - General Chief Complaint: Lower Extremity Injury/Pain Stated Complaint: INJURY RT FOOT Time Seen by Provider: 11/28/20 19:41 Source of Information: Reports: Patient History Limitations: Reports: No Limitations - History of Present Illness INITIAL COMMENTS - FREE TEXT/NARRATIVE: Brittany is a 47-year-old female presenting to the ED for evaluation of right midfoot pain after having a twisting injury today. Patient reports having issues with her left meniscus causing weakness in the left knee and as such has been putting more strain on the right lower extremity. The patient hyperflexed her foot and since then has been having pain whenever bearing weight on the entire foot. She is able to walk on the heel. She is somewhat flat-footed. 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 She denies any numbness or tingling in the foot. There is no significant swelling of the foot. The majority of the pain is on the plantar midfoot where the first and second tarsals. right midfoot Pain Score (Numeric/FACES): 5 - Related Data Allergies Allergy/AdvReac Type Severity Reaction Status Date / Time bupropion HCl Allergy Hives Verified 11/28/20 19:44 [From Wellbutrin] Penicillins Allergy Cannot Verified 11/28/20 19:44 Remember Sulfa (Sulfonamide Allergy Hives Verified 11/28/20 19:44 Antibiotics) Home Meds: Home Meds Montelukast [Singulair] 10 mg PO BEDTIME 05/17/16 [History] Albuterol [Ventolin HFA] 1 dose INH Q4HR PRN 10/24/16 [History] Pnv No.95/Ferrous Fum/Folic AC [ Caplet] 1 tab PO DAILY 10/02/18 [History] Albuterol Sulfate 1 dose INH Q4H PRN 03/24/20 [History] Cetirizine HCl [Allergy Relief] 1 tab PO DAILY 11/28/20 [History] Levothyroxine 25 mcg PO ACBREAKFAST 11/28/20 [History] Salmeterol Xinafoate [Serevent Diskus] 1 puff INH Q12H 11/28/20 [History] Past Medical History HEENT History: Reports: Impaired Vision Respiratory History: Reports: Asthma 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 for 1 month as a teenager for depression Endocrine/Metabolic History: Reports: Obesity/BMI 30+ - Infectious Disease History Infectious Disease History: Reports: Chicken Pox - Past Surgical History Head Surgeries/Procedures: Reports: None HEENT Surgical History: Reports: Myringotomy w Tube(s) Respiratory Surgical History: Reports: None Female Surgical History: Reports: Section Endocrine Surgical History: Reports: None Musculoskeletal Surgical History: Reports: Other (See Below) Other Musculoskeletal Surgeries/Procedures:: right radius and ulna surgical repair due to fracture Dermatological Surgical History: Reports: None Social & Family History - Family History Family Medical History: No Pertinent Family History - Caffeine Use Caffeine Use: Reports: Coffee, Soda - Living Situation & Occupation Living situation: Reports: Review of Systems - Review of Systems Review Of Systems: See Below Constitutional: Reports: No Symptoms Eyes: Reports: No Symptoms Ears: Reports: No Symptoms Nose: Reports: No Symptoms Mouth/Throat: Reports: No Symptoms Respiratory: Reports: No Symptoms Cardiovascular: Reports: No Symptoms GI/Abdominal: Reports: No Symptoms Genitourinary: Reports: No Symptoms Musculoskeletal: Reports: Back Pain (Chronic mild back pain.), Foot Pain (Right foot on the medial aspect over the first and second tarsals plantar greater than dorsal.), Joint Pain (Chronic left knee pain due to damage to the meniscus and medial collateral ligament.) Skin: Reports: No Symptoms Neurological: Reports: No Symptoms Psychiatric: Reports: No Symptoms ED EXAM, GENERAL - Physical Exam Exam: See Below Exam Limited By: No Limitations General Appearance: Alert, No Apparent Distress Extremities: Normal Range of Motion, No Pedal Edema, Normal Capillary Refill, Other (Tenderness with palpation over the medial plantar arch involving the first and second tarsal bones. There is no obvious deformity. There is normal range of motion of the toes. When applying pressure to the plantar fascia, pain radiates into the dorsal foot. This reproduces the symptoms.) Neurological: Alert, Oriented, Normal Cognition, No Motor/Sensory Deficits Psychiatric: Normal Affect, Normal Mood Skin Exam: Warm, Dry, Intact, Normal Color. No: Ecchymosis Course - Vital Signs Last Recorded V/S: Last Vital Signs Temp 36.3 C 11/28/20 19:46 Pulse 55 L 11/28/20 19:46 Resp 16 11/28/20 19:46 BP 129/50 L 11/28/20 19:46 Pulse Ox 98 11/28/20 19:46 - Orders/Labs/Meds Orders: Active Orders 24 hr Category Date Time Status Foot Comp Min 3V Rt [CR] Stat Exams 11/28/20 19:45 Taken - Re-Assessments/Exams Free Text/Narrative Re-Assessment/Exam: 11/28/20 20:39 reviewed the x-rays of the foot. There is no acute osseous abnormalities. Based on this and my exam, this is likely acute traumatic plantar fasciitis. We will put Brittany in a walking boot and I like her to follow-up in the [facility] clinic next week with podiatry for reevaluation. We will place a referral for her to see podiatry in the clinic next week. She may require physical therapy or orthotic to return to normal function. Take Tylenol or ibuprofen for pain control. Indications to return to the ED were discussed and she was discharged in satisfactory condition. Departure - Departure Time of Disposition: 20:41 Disposition: Home, Self-Care 01 Clinical Impression: Traumatic plantar fasciitis - Discharge Information *PRESCRIPTION DRUG MONITORING PROGRAM REVIEWED*: Not Applicable *COPY OF PRESCRIPTION DRUG MONITORING REPORT IN PATIENT JAMISON: Not Applicable Instructions: Foot Sprain Referrals: Kayla Merino PA-C [Primary Care Provider] - Forms: ED Department Discharge Care Plan Goals: We are putting you in a walking boot to help support the foot. There is significant inflammation in the plantar fascia causing increasing pain when the foot is spread out. Hopefully the boot will eliminate the need to bear weight on the entire foot. I have placed a consult for you to be seen in podiatry in the [facility] clinic next week. They will contact you to arrange this appointment. Sepsis Event Note (ED) - Focused Exam Vital Signs: Vital Signs Temp Pulse Resp BP Pulse Ox 11/28/20 19:46 36.3 C 55 L 16 129/50 L 98 - Problem List & Annotations (1) Traumatic plantar fasciitis SNOMED Code(s): 681554795 Code(s): S93.699A - OTHER SPRAIN OF UNSPECIFIED FOOT, INITIAL ENCOUNTER Status: Acute Priority: Medium Current Visit: Yes - Problem List Review Problem List Initiated/Reviewed/Updated: Yes - My Orders Last 24 Hours: My Active Orders 11/28/20 19:45 Foot Comp Min 3V Rt [CR] Stat - Assessment/Plan Last 24 Hours: My Active Orders 11/28/20 19:45 Foot Comp Min 3V Rt [CR] Stat
--- NOTE | 2020-11-30 09:27 | CR ---
FOOT RIGHT 3 views CLINICAL HISTORY:Injury FINDINGS:No fracture or osseous lesion is identified. No foreign body is seen. This a small calcaneal spur. Impression: Small calcaneal spur. No fracture
== END 2020-11-28 20:48 | disposition home or self-care (01) ==
LOC: JP.ED 19:27
DX: M72.2 Plantar fascial fibromatosis (principal); J45.909 Unspecified asthma, uncomplicated; E66.9 Obesity, unspecified; Z68.39 Body mass index [BMI] 39.0-39.9, adult; Z88.8 Allergy status to other drugs, medicaments and biological substances; Z88.0 Allergy status to penicillin; Z88.2 Allergy status to sulfonamides
CPT/HCPCS: 73630-26-RT; 73630-RT; 99283

== ENCOUNTER 2021-01-26 19:25 | Emergency (ER) | payer MEDICAID ==
[2021-01-26 20:51] VITALS: BP 108/61; PULSE 75
[2021-01-26] MEDS ORDERED: cefTRIAXone 1 GM, Lidocaine 1% 2.1 ML IM ONE ×2 (21:09)
--- NOTE | 2021-01-26 21:25 | EDM.PDOC ---
ED HPI GENERAL MEDICAL PROBLEM - General Chief Complaint: Skin Complaint Stated Complaint: FEVER ,PAIN CHILLS, BREAST PAIN Time Seen by Provider: 01/26/21 21:00 Source of Information: Reports: Patient History Limitations: Reports: No Limitations - History of Present Illness INITIAL COMMENTS - FREE TEXT/NARRATIVE: 45-year-old female who is breast-feeding, has developed some redness and soreness on the lips for the last 12 hours, low-grade fevers or chills. No other symptoms. Onset: Gradual Duration: Hour(s): Location: Reports: Other (12 hours left breast) Quality: Reports: Burning, Dull, Pressure Improves with: Reports: None Worsens with: Reports: None Associated Symptoms: Reports: Fever/Chills Left Breast Pain Score (Numeric/FACES): 5 - Related Data Allergies Allergy/AdvReac Type Severity Reaction Status Date / Time bupropion HCl Allergy Hives Verified 01/26/21 20:53 [From Wellbutrin] Penicillins Allergy Cannot Verified 01/26/21 20:53 Remember Sulfa (Sulfonamide Allergy Hives Verified 01/26/21 20:53 Antibiotics) Home Meds: Home Meds Montelukast [Singulair] 10 mg PO BEDTIME 05/17/16 [History] Albuterol [Ventolin HFA] 1 dose INH Q4HR PRN 10/24/16 [History] Pnv No.95/Ferrous Fum/Folic AC [ Caplet] 1 tab PO DAILY 10/02/18 [History] Albuterol Sulfate 1 dose INH Q4H PRN 03/24/20 [History] Cetirizine HCl [Allergy Relief] 1 tab PO DAILY 11/28/20 [History] Levothyroxine 25 mcg PO ACBREAKFAST 11/28/20 [History] Salmeterol Xinafoate [Serevent Diskus] 1 puff INH Q12H 11/28/20 [History] Mometasone Furoate [Asmanex] 2 puff INH DAILY 01/26/21 [History] Past Medical History HEENT History: Reports: Impaired Vision Respiratory History: Reports: Asthma Genitourinary History: Reports: None [employer]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 for 1 month as a teenager for depression Endocrine/Metabolic History: Reports: Obesity/BMI 30+ - Infectious Disease History Infectious Disease History: Reports: Chicken Pox - Past Surgical History Head Surgeries/Procedures: Reports: None HEENT Surgical History: Reports: Myringotomy w Tube(s) Respiratory Surgical History: Reports: None Female Surgical History: Reports: Section Endocrine Surgical History: Reports: None Musculoskeletal Surgical History: Reports: Other (See Below) Other Musculoskeletal Surgeries/Procedures:: right radius and ulna surgical repair due to fracture Dermatological Surgical History: Reports: None Social & Family History - Family History Family Medical History: No Pertinent Family History - Tobacco Use Tobacco Use Status *Q: Never Tobacco User - Caffeine Use Caffeine Use: Reports: Coffee, Soda, Tea - Recreational Drug Use Recreational Drug Use: No - Living Situation & Occupation Living situation: Reports: ED ROS GENERAL - Review of Systems Review Of Systems: See Below Constitutional: Reports: Fever, Chills, Malaise HEENT: Reports: No Symptoms Respiratory: Denies: Shortness of Breath Cardiovascular: Denies: Chest Pain GI/Abdominal: Denies: Nausea, Vomiting Skin: Reports: Other (Erythema and tenderness above and laterally to the left areolar area of the left breast) Neurological: Reports: No Symptoms. Denies: Headache Psychiatric: Reports: No Symptoms ED EXAM, SKIN/RASH Exam: See Below Exam Limited By: No Limitations General Appearance: Alert, No Apparent Distress, Other (Patient is stable, currently afebrile) Head: Atraumatic Respiratory/Chest: No Respiratory Distress Cardiovascular: Regular Rate, Rhythm. No: Tachycardia Neurological: Alert, Oriented Skin: Other (Patient does have a fairly large area of erythema above and laterally to the left areolar area of the breast with tenderness to palpation and slight warmth) Course - Vital Signs Last Recorded V/S: Last Vital Signs Temp 97.6 F 01/26/21 20:53 Pulse 75 01/26/21 20:53 Resp 16 01/26/21 20:53 BP 108/61 01/26/21 20:53 Pulse Ox 97 01/26/21 20:53 - Orders/Labs/Meds Meds: Medications Discontinued Medications Generic Name Dose Route Start Last Admin Trade Name Freq PRN Reason Stop Dose Admin Ceftriaxone Sodium 1 gm/ 0 gm 01/26/21 21:09 01/26/21 21:23 Lidocaine HCl 2.1 ml IM 04/27/21 21:10 1 inj ONETIME ONE Administration - Re-Assessments/Exams Free Text/Narrative Re-Assessment/Exam: 01/26/21 21:23 It appears this patient is developing some mastitis of the left breast. She was given 1 g of Rocephin IM and will be placed on cephalexin 500 mg 3 times a day for the next 7 days. Continue breast-feeding, warm compresses may be helpful, and recheck in 2 to 3 days if not improving satisfactorily. Departure - Departure Time of Disposition: 21:33 Disposition: Home, Self-Care 01 Clinical Impression: Mastitis, left, acute - Discharge Information Instructions: Mastitis, [id number] Referrals: Kayla Merino PA-C [Primary Care Provider] - Forms: ED Department Discharge Care Plan Goals: Continue breast-feeding, start antibiotic tomorrow and take until gone. Warm compresses to the breast may be helpful as well as anti-inflammatories, and recheck anytime if worsening such as increased fever, pain, redness or swelling despite treatment. Otherwise consider rechecking in 3 to 4 days if not improving satisfactorily. Sepsis Event Note (ED) - Evaluation Sepsis Screening Result: No Definite Risk - Focused Exam Vital Signs: Vital Signs Temp Pulse Resp BP Pulse Ox 01/26/21 20:53 97.6 F 75 16 108/61 97 01/26/21 20:50 97.6 F 75 16 108/61 97
== END 2021-01-26 21:40 | disposition home or self-care (01) ==
LOC: JP.ED 19:25
DX: N61.0 Mastitis without abscess (principal); Z88.0 Allergy status to penicillin; Z88.8 Allergy status to other drugs, medicaments and biological substances; Z88.2 Allergy status to sulfonamides; J45.909 Unspecified asthma, uncomplicated; E66.9 Obesity, unspecified; Z68.39 Body mass index [BMI] 39.0-39.9, adult
CPT/HCPCS: 96372; 99283; J0696

== ENCOUNTER 2021-03-08 05:25 | Emergency (ER) | payer MEDICAID ==
[2021-03-08 05:46] VITALS: BP 129/74; PULSE 86
--- NOTE | 2021-03-08 05:52 | EDM.PDOC ---
ED HPI GENERAL MEDICAL PROBLEM - General Chief Complaint: ENT Problem Stated Complaint: SORE THROAT, FEVER, EAR PAIN Time Seen by Provider: 03/08/21 05:47 Source of Information: Reports: Patient, RN Notes Reviewed History Limitations: Reports: No Limitations - History of Present Illness INITIAL COMMENTS - FREE TEXT/NARRATIVE: 45-year-old female presents emergency department day complaint of sore throat she has had sore throat for 3 days no cough has had fever up to 102 Throat Pain Score (Numeric/FACES): 6 - Related Data Allergies Allergy/AdvReac Type Severity Reaction Status Date / Time bupropion HCl Allergy Hives Verified 03/08/21 05:40 [From Wellbutrin] Penicillins Allergy Cannot Verified 03/08/21 05:40 Remember Sulfa (Sulfonamide Allergy Hives Verified 03/08/21 05:40 Antibiotics) Home Meds: Home Meds Montelukast [Singulair] 10 mg PO BEDTIME 05/17/16 [History] Albuterol [Ventolin HFA] 1 dose INH Q4HR PRN 10/24/16 [History] Pnv No.95/Ferrous Fum/Folic AC [ Caplet] 1 tab PO DAILY 10/02/18 [History] Albuterol Sulfate 1 dose INH Q4H PRN 03/24/20 [History] Cetirizine HCl [Allergy Relief] 1 tab PO DAILY 11/28/20 [History] Levothyroxine 25 mcg PO ACBREAKFAST 11/28/20 [History] Salmeterol Xinafoate [Serevent Diskus] 1 puff INH Q12H 11/28/20 [History] Mometasone Furoate [Asmanex] 2 puff INH DAILY 01/26/21 [History] Past Medical History HEENT History: Reports: Impaired Vision Respiratory History: Reports: Asthma [employer] History: Reports: , Spontaneous Musculoskeletal History: Reports: Fracture Psychiatric History: Reports: Other (See Below) Other Psychiatric History: [facility] for 1 month as a teenager for depression Endocrine/Metabolic History: Reports: Obesity/BMI 30+ - Infectious Disease History Infectious Disease History: Reports: Chicken Pox - Past Surgical History Head Surgeries/Procedures: Reports: None HEENT Surgical History: Reports: Myringotomy w Tube(s) Respiratory Surgical History: Reports: None Female Surgical History: Reports: Section Endocrine Surgical History: Reports: None Musculoskeletal Surgical History: Reports: Other (See Below) Other Musculoskeletal Surgeries/Procedures:: right radius and ulna surgical repair due to fracture Dermatological Surgical History: Reports: None Social & Family History - Family History Family Medical History: No Pertinent Family History - Tobacco Use Tobacco Use Status *Q: Never Tobacco User - Caffeine Use Caffeine Use: Reports: Coffee - Recreational Drug Use Recreational Drug Use: No - Living Situation & Occupation Living situation: Reports: ED ROS ENT - Review of Systems Review Of Systems: See Below Constitutional: Reports: Fever HEENT: Reports: Throat Pain, Throat Swelling Respiratory: Reports: No Symptoms Cardiovascular: Reports: No Symptoms GI/Abdominal: Reports: No Symptoms ED EXAM, ENT - Physical Exam Exam: See Below Exam Limited By: No Limitations General Appearance: Alert, WD/WN, No Apparent Distress Mouth/Throat: Normal Inspection, Normal Gums, Normal Lips, Normal Teeth, Tonsillar Erythema, Tonsillar Swelling. No: Tonsillar Exudates Head: Atraumatic, Normocephalic Neck: Normal Inspection, Lymphadenopathy (R), Lymphadenopathy (L) Respiratory/Chest: No Respiratory Distress, Lungs Clear, Normal Breath Sounds, No Accessory Muscle Use, Chest Non-Tender Cardiovascular: Regular Rate, Rhythm, No Murmur Course - Vital Signs Last Recorded V/S: Last Vital Signs Temp 96.8 F L 03/08/21 05:41 Pulse 86 03/08/21 05:41 Resp 16 03/08/21 05:41 BP 129/74 03/08/21 05:41 Pulse Ox 98 03/08/21 05:41 - Orders/Labs/Meds Orders: Active Orders 24 hr Category Date Time Status CULTURE STREP A CONFIRMATION [RM] Stat Lab 03/08/21 05:55 Results STREP SCRN A RAPID W CULT CONF [RM] Stat Lab 03/08/21 05:55 Results Labs: Laboratory Tests 03/08/21 Range/Units 06:00 SARS CoV-2 RNA Rapid SANJEEV Negative Departure - Departure Time of Disposition: 06:21 Disposition: Home, Self-Care 01 Condition: Fair Clinical Impression: Viral syndrome - Discharge Information Instructions: Viral Illness, Adult Referrals: Kayla Merino PA-C [Primary Care Provider] - Forms: ED Department Discharge, ED Department Discharge Additional Instructions: Continue with regular medications, please followup with your primary care provider in 3-5 days if not better, please call return to the emergency department with worsening of symptoms. Sepsis Event Note (ED) - Evaluation Sepsis Screening Result: No Definite Risk - Focused Exam Vital Signs: Vital Signs Temp Pulse Resp BP Pulse Ox 03/08/21 05:41 96.8 F L 86 16 129/74 98 - My Orders Last 24 Hours: My Active Orders 03/08/21 05:55 CULTURE STREP A CONFIRMATION [RM] Stat STREP SCRN A RAPID W CULT CONF [RM] Stat - Assessment/Plan Last 24 Hours: My Active Orders 03/08/21 05:55 CULTURE STREP A CONFIRMATION [RM] Stat STREP SCRN A RAPID W CULT CONF [RM] Stat Plan: Assessment Acuity = acute Site and laterality = viral syndrome Etiology = unknown Manifestations = pharyngitis Location of injury = Home Lab values = rapid strep is negative culture is pending, Covid negative Plan Recommend symptomatic care follow-up primary care 3 to 5 days if not better This note was dictated using [employer] voice recognition software please call with any questions on syntax or grammar.
== END 2021-03-08 06:27 | disposition home or self-care (01) ==
LOC: JP.ED 05:25
DX: B34.9 Viral infection, unspecified (principal); J45.909 Unspecified asthma, uncomplicated; E66.9 Obesity, unspecified; Z68.39 Body mass index [BMI] 39.0-39.9, adult; Z20.822 Contact with and (suspected) exposure to COVID-19; Z88.8 Allergy status to other drugs, medicaments and biological substances; Z88.0 Allergy status to penicillin; Z88.2 Allergy status to sulfonamides; Z79.899 Other long term (current) drug therapy
CPT/HCPCS: 87081; 87880-QW; 99283; U0002

== ENCOUNTER 2021-07-02 22:01 | Emergency (ER) | payer MEDICAID ==
[2021-07-02 22:28] VITALS: BP 154/76; PULSE 74
--- NOTE | 2021-07-02 23:06 | EDM.PDOC ---
ED HPI GENERAL MEDICAL PROBLEM - General Chief Complaint: Lower Extremity Injury/Pain Stated Complaint: CONCERNS OF BLOOD CLOT, PAIN IN LT LEG Time Seen by Provider: 07/02/21 22:45 Source of Information: Reports: Patient History Limitations: Reports: No Limitations - History of Present Illness INITIAL COMMENTS - FREE TEXT/NARRATIVE: Is a 45-year-old female presenting to the ED for evaluation of a painful, bruised small area on her lower left lateral thigh that appeared overnight. Patient states that she did not injure herself and she is not sure what has caused the pain and bruising. She was concerned that she may have had a blood clot. She reports that she has been traveling a lot in her car over the last couple of days but yesterday was homeschooling her 6 kids. Her activity was normal throughout the day. He denies any fever or chills, shortness of breath, she is quite anxious and concerned that she has a blood clot. - Related Data Allergies Allergy/AdvReac Type Severity Reaction Status Date / Time bupropion HCl Allergy Hives Verified 03/08/21 05:40 [From Wellbutrin] Penicillins Allergy Cannot Verified 03/08/21 05:40 Remember Sulfa (Sulfonamide Allergy Hives Verified 03/08/21 05:40 Antibiotics) Home Meds: Home Meds Montelukast [Singulair] 10 mg PO BEDTIME 05/17/16 [History] Albuterol [Ventolin HFA] 1 dose INH Q4HR PRN 10/24/16 [History] Albuterol Sulfate 1 dose INH Q4H PRN 03/24/20 [History] Cetirizine HCl [Allergy Relief] 1 tab PO DAILY 11/28/20 [History] Levothyroxine 25 mcg PO ACBREAKFAST 11/28/20 [History] Mometasone Furoate [Asmanex] 2 puff INH DAILY 01/26/21 [History] Past Medical History HEENT History: Reports: Impaired Vision Cardiovascular History: Reports: None Respiratory History: Reports: Asthma Gastrointestinal History: Reports: None Genitourinary History: Reports: 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: , Spontaneous Musculoskeletal History: Reports: Fracture Neurological History: Reports: None Psychiatric History: Reports: Other (See Below) Other Psychiatric History: [facility] for 1 month as a teenager for depression Endocrine/Metabolic History: Reports: Hypothyroidism, Obesity/BMI 30+ Hematologic History: Reports: None Immunologic History: Reports: Other (See Below) Other Immunologic History: hashimotos Oncologic (Cancer) History: Reports: None - Infectious Disease History Infectious Disease History: Reports: Chicken Pox - Past Surgical History Head Surgeries/Procedures: Reports: None HEENT Surgical History: Reports: Myringotomy w Tube(s) Respiratory Surgical History: Reports: None Female Surgical History: Reports: Section Endocrine Surgical History: Reports: None Musculoskeletal Surgical History: Reports: Other (See Below) Other Musculoskeletal Surgeries/Procedures:: right radius and ulna surgical repair due to fracture Dermatological Surgical History: Reports: None Social & Family History - Family History Family Medical History: No Pertinent Family History - Tobacco Use Tobacco Use Status *Q: Never Tobacco User - Caffeine Use Caffeine Use: Reports: Coffee - Recreational Drug Use Recreational Drug Use: No - Living Situation & Occupation Living situation: Reports: Review of Systems - Review of Systems Review Of Systems: See Below Constitutional: Reports: No Symptoms Musculoskeletal: Reports: Other (Pain and bruising of the lower lateral left thigh. The area measures about 4 x 3 cm. There is a small superficial blood vessel with ecchymosis around it. There is no leg swelling distally. There is no erythema.) Skin: Reports: Bruising (Small area of bruising around a superficial blood vessel on the lower lateral left thigh) Neurological: Reports: No Symptoms Psychiatric: Reports: Anxiety ED EXAM, GENERAL - Physical Exam Exam: See Below Exam Limited By: No Limitations General Appearance: Alert, No Apparent Distress, Anxious Extremities: Normal Range of Motion, No Pedal Edema, Normal Capillary Refill, Other (Small area of bruising on the lower anterior lateral left thigh around a superficial blood vessel with tenderness to palpation. There is a palpable he matoma that is tender measuring about 4 cm x 3 cm. There are no cords. ). No: Jerry's Sign, Increased Warmth, Redness Neurological: Alert, Oriented, Normal Cognition, No Motor/Sensory Deficits Skin Exam: Ecchymosis (Small area of ecchymosis around a superficial vessel on the lower anterior lateral left thigh.) Course - Vital Signs Last Recorded V/S: Last Vital Signs Temp 36.2 C 07/02/21 22:27 Pulse 74 07/02/21 22:27 Resp 20 07/02/21 22:27 BP 154/76 H 07/02/21 22:27 Pulse Ox 99 07/02/21 22:27 - Re-Assessments/Exams Free Text/Narrative Re-Assessment/Exam: 07/02/21 23:03 I reassured the patient that this was not a deep venous thrombosis as it is nowhere near the deep venous system. It does appear that she may have a little bit of his superficial phlebitis the cause some leakage of blood around a superficial vessel. Patient has a negative Homans' sign. There is no other significant abnormalities. The patient is very anxious but I reassured her that nothing serious is going on. I did recommend she take ibuprofen or Tylenol for pain. Activity as tolerated. Patient is suitable for discharge in satisfactory condition. Departure - Departure Time of Disposition: 23:04 Disposition: Home, Self-Care 01 Clinical Impression: Superficial phlebitis, Contusion of left thigh, initial encounter - Discharge Information Instructions: Phlebitis, Contusion Referrals: Kasey Nieves CNM [Primary Care Provider] - Care Plan Goals: He may take ibuprofen or Tylenol for the aches and pain related to this small hematoma. It will resolve usually in the course of the next 3 to 5 days. Sepsis Event Note (ED) - Evaluation Sepsis Screening Result: No Definite Risk - Focused Exam Vital Signs: Vital Signs Temp Pulse Resp BP Pulse Ox 07/02/21 22:27 36.2 C 74 20 154/76 H 99 - Problem List & Annotations (1) Contusion of left thigh, initial encounter SNOMED Code(s): 74599900 Code(s): S70.12XA - CONTUSION OF LEFT THIGH, INITIAL ENCOUNTER Status: Acute Priority: Low Current Visit: Yes (2) Superficial phlebitis SNOMED Code(s): 56486481 Code(s): I80.9 - PHLEBITIS AND THROMBOPHLEBITIS OF UNSPECIFIED SITE Status: Acute Priority: Low Current Visit: Yes - Problem List Review Problem List Initiated/Reviewed/Updated: Yes
== END 2021-07-02 23:12 | disposition home or self-care (01) ==
LOC: JP.ED 22:01
DX: S70.12XA Contusion of left thigh, initial encounter (principal); I80.02 Phlebitis and thrombophlebitis of superficial vessels of left lower extremity; E03.9 Hypothyroidism, unspecified; E66.9 Obesity, unspecified; J45.909 Unspecified asthma, uncomplicated; Z68.30 Body mass index [BMI] 30.0-30.9, adult; Z88.0 Allergy status to penicillin; Z88.2 Allergy status to sulfonamides; Z88.8 Allergy status to other drugs, medicaments and biological substances; Z79.899 Other long term (current) drug therapy; X58.XXXA Exposure to other specified factors, initial encounter
CPT/HCPCS: 99283

== ENCOUNTER 2023-04-10 14:10 | Emergency (ER) | payer MEDICAID ==
[2023-04-10 15:23] LABS: BASOPHILS ABSOLUTE AUTO 0.02 K/uL (0.00-0.10); BASOPHILS PERCENT AUTO 0.4 % (0.1-1.3); EOSINOPHILS ABSOLUTE AUTO 0.13 K/uL (0.00-0.40); EOSINOPHILS PERCENT AUTO 2.4 % (0.0-5.4); HEMATOCRIT 29.3 % (34.3-46.0); HEMOGLOBIN 8.9 g/dL (11.2-15.5); IMMATURE GRAN ABSOLUTE AUTO 0.01 K/uL (0.00-0.23); IMMATURE GRAN PERCENT AUTO 0.2 % (0.0-0.7); LYMPHOCYTES ABSOLUTE AUTO 1.63 K/uL (0.8-3.3); LYMPHOCYTES PERCENT AUTO 30.5 % (11.4-47.7); MEAN CORPUSCULAR HEMOGLOBIN 22.8 pg (31.6-35.5); MEAN CORPUSCULAR HGB CONC 30.4 g/dL (31.6-35.5); MEAN CORPUSCULAR VOLUME 75.1 fL (81.4-99.0); MONOCYTES ABSOLUTE AUTO 0.41 K/uL (0.20-0.90); MONOCYTES PERCENT AUTO 7.7 % (3.3-12.6); NEUTROPHILS ABSOLUTE AUTO 3.15 K/uL (1.0-7.6); NEUTROPHILS PERCENT AUTO 58.8 % (40.0-78.1); PLATELET COUNT,PLT 297 K/uL (130-375); WHITE BLOOD CELL COUNT,WBC 5.4 K/uL (3.2-11.0)
[2023-04-10 15:52] LABS: BLOOD UREA NITROGEN,BUN 15 mg/dL (7-18); CARBON DIOXIDE,CO2 27 mmol/L (21-32); CHLORIDE,CL 104 mmol/L (100-108); CREATININE 0.8 mg/dL (0.6-1.0); ESTIMATED GFR 93 mL/min (>60); GLUCOSE RANDOM 102 mg/dL (74-106); MAGNESIUM 1.9 mg/dL (1.8-2.4); SODIUM,NA 137 mmol/L (140-148); TROPONIN I HIGH SENSITIVITY 7.4 pg/mL (<=60.3); TSH ULTRASENSITIVE 1.524 uIU/mL (0.358-3.740)
[2023-04-10] MEDS ORDERED: Albuterol/Ipratropium 3.0-0.5 MG/3 ML Neb Soln NEB ONE (16:03)
[2023-04-10 16:31] VITALS: BP 114/63; PULSE 62
== END 2023-04-10 16:56 | disposition home or self-care (01) ==
LOC: JP.ED 14:10
DX: R00.2 Palpitations (principal); J45.21 Mild intermittent asthma with (acute) exacerbation; D64.9 Anemia, unspecified; E03.9 Hypothyroidism, unspecified; E66.9 Obesity, unspecified; Z68.30 Body mass index [BMI] 30.0-30.9, adult; Z88.2 Allergy status to sulfonamides; Z88.0 Allergy status to penicillin; Z88.8 Allergy status to other drugs, medicaments and biological substances
CPT/HCPCS: 36415; 80048; 83735; 84443; 84484; 85025; 93005; 94640; 99285; J7620

== ENCOUNTER 2023-04-27 06:26 | Day surgery (SDC) | payer MEDICAID ==
[~2023-04-27 06:26] MED LIST: Midazolam 1 MG/ML 2 ML SDV ONE; Propofol 200 MG/20 ML SDV ONE; fentaNYL 50 MCG/ML SDV ONE
[2023-04-27] MEDS ORDERED: Sodium Chloride 0.9% 1,000 ML IV SCH (07:00)
[2023-04-27 09:06] VITALS: BP 123/68; PULSE 58
== END 2023-04-27 09:11 | disposition home or self-care (01) ==
LOC: JP.SDS 06:26
PROVIDERS: ATTEND Surgery
DX: Z12.11 Encounter for screening for malignant neoplasm of colon (principal); K21.9 Gastro-esophageal reflux disease without esophagitis; F32.A Depression, unspecified; E03.9 Hypothyroidism, unspecified; Z88.0 Allergy status to penicillin; Z88.2 Allergy status to sulfonamides; Z88.8 Allergy status to other drugs, medicaments and biological substances
CPT/HCPCS: 45378; 81025; J2250; J2704; J3010; J7030

== ENCOUNTER 2023-05-13 11:53 | Emergency (ER) | payer MEDICAID ==
[2023-05-13 12:39] VITALS: BP 131/50; PULSE 73
== END 2023-05-13 13:40 | disposition home or self-care (01) ==
LOC: JP.ED 11:53
DX: S93.401A Sprain of unspecified ligament of right ankle, initial encounter (principal); J45.909 Unspecified asthma, uncomplicated; E66.9 Obesity, unspecified; Z68.41 Body mass index [BMI] 40.0-44.9, adult; Z88.1 Allergy status to other antibiotic agents; Z88.0 Allergy status to penicillin; Z88.2 Allergy status to sulfonamides; Z88.8 Allergy status to other drugs, medicaments and biological substances; W18.40XA Slipping, tripping and stumbling without falling, unspecified, initial encounter
CPT/HCPCS: 73610-26-RT; 73610-RT; 73630-26-RT; 73630-RT; 99283